=== PATIENT | male | born 1985 | race Caucasian/White ===

== ENCOUNTER 2020-09-22 10:40 | Inpatient (IN) | payer OTHER ==
[~2020-09-22] VITALS: Ht 182.9 cm; Wt 71.7 kg
[~2020-09-22 10:40] MED LIST: SINEMET 25-1001 TA1 PO; VISTARIL50 MG PO; Zofran4 MG PO
[2020-09-22 10:58] VITALS: BP 141/80
[2020-09-22 12:15] LABS: BASO # 0.1 10*3/uL (0.0-0.1); BASO % 0.9 % (0.0-1.0); EOS # 0.2 10*3/uL (0.0-0.4); EOS % 2.8 % (1.0-4.0); HEMATOCRIT 37.8 % (42.0-52.0); LYMPH % 38.5 % (27.0-41.0); MEAN CELL VOLUME 82.2 fl (80.0-94.0); MEAN CORPUSCULAR HGB 26.5 pg (27.0-31.0); MEAN CORPUSCULAR HGB CONC 32.3 g/dl (33.0-37.0); MEAN PLATELET VOLUME 8.9 fl (9.6-12.3); MONO # 0.5 10*3/uL (0.1-1.0); MONO % 6.5 % (3.0-9.0); NEUT % 50.5 % (47.0-73.0); PLATELET COUNT AUTOMATED 286 10*3/uL (130-400); RED CELL DISTRI WIDTH 13.2 % (0-14.5); WHITE BLOOD COUNT 7.8 10*3/uL (4.8-10.8)
[2020-09-22 12:35] LABS: ALBUMIN 3.3 gm/dl (3.1-4.5); ALKALINE PHOSPHATASE 82 U/L (45-117); BUN 9 mg/dl (7-24); CHLORIDE 105 mmol/L (98-107); CREATININE 0.85 mg/dL (0.70-1.30); LIPASE 57 U/L (73-393); POTASSIUM 3.7 mmol/L (3.5-5.1); SGOT/AST 6 IU/L (3-35); SGPT/ALT 12 U/L (12-78); SODIUM 135 mmol/L (136-145); TOTAL PROTEIN 7.4 gm/dL (6.4-8.2)
[2020-09-22 12:36] LABS: ETHYL ALCOHOL < 3.0 mg/dl (<3)
[2020-09-22 12:50] LABS: BILIRUBIN Negative (Negative); BLOOD Negative (Negative); CLARITY Clear (Clear); COLOR Yellow (Yellow); GLUCOSE Negative (Negative); KETONE Negative (Negative); LEUKO ESTERASE Negative (Negative); NITRITE Negative (Negative); SPECIFIC GRAVITY 1.015 (1.001-1.030); UROBILINOGEN 0.2 E.U./dl (0.0-1.0)
[2020-09-22 13:44] LABS: RBC 0-2 rbc/hpf (0-2); WBC 0-2 wbc/hpf (0-5)
[2020-09-22 14:00] VITALS: BP 136/72
[2020-09-22 14:09] VITALS: BP 121/72
[2020-09-22 14:24] VITALS: BP 116/74
== END 2020-09-22 17:31 | disposition left against medical advice (07) | DRG 770 ==
LOC: ED 10:40 → EDHOLD 11:26 → 5E 13:06
PROVIDERS: Social Worker Clinical; ADMIT Internal Medicine; ATTEND Internal Medicine
DX: F11.23 Opioid dependence with withdrawal (principal); E87.1 Hypo-osmolality and hyponatremia; Z71.6 Tobacco abuse counseling; R73.9 Hyperglycemia, unspecified; F17.210 Nicotine dependence, cigarettes, uncomplicated; D64.9 Anemia, unspecified; Z53.29 Procedure and treatment not carried out because of patient's decision for other reasons

== ENCOUNTER 2020-09-22 18:23 | Emergency (ER) | payer OTHER | END 2020-09-22 19:00 | disposition home or self-care (01) | LOC: ED 18:23 | DX: F11.23 Opioid dependence with withdrawal (principal); Z98.890 Other specified postprocedural states ==